=== PATIENT | female | born 1980 | race Caucasian/White ===

== ENCOUNTER 2018-01-22 13:33 | Observation (INO) | payer BC ==
[~2018-01-22] VITALS: Ht 165.1 cm; Wt 79.9 kg
[2018-01-22] MEDS ORDERED: CITA20TA9 PO (14:27)
[2018-01-22] MEDS ORDERED: LACTATED RINGERS 1,000 ML IV SCH ×2 (14:27→18:30)
[2018-01-22] MEDS ORDERED: OMEP-110 PO (14:27)
[2018-01-22 14:29] LABS: MICROSCOPIC NOT IND
[2018-01-22] MEDS ORDERED: MIDAZOLAM 1 MG/ML, 2ML ONE (14:29)
[2018-01-22] MEDS ORDERED: FENTANYL PF 250 MCG/5ML ONE (14:29)
[2018-01-22] MEDS ORDERED: OxyconTIN ER 10 MG TAB.ER PO ONE (14:30)
[2018-01-22] MEDS ORDERED: GABAPENTIN 300 MG CAPSULE PO ONE (14:30)
[2018-01-22] MEDS ORDERED: ACETAMINOPHEN 500 MG TABLET PO ONE (14:30)
[2018-01-22 14:32] LABS: CULTURE INDICATED? NO
[2018-01-22 14:35] VITALS: BP 105/68
[2018-01-22 14:41] LABS: BASOPHILS # (AUTO) 0.05 x10^3/uL (0-0.1); BASOPHILS % (AUTO) 1 % (0-1); EOSINOPHILS # (AUTO) 0.13 x10^3/uL (0-0.4); EOSINOPHILS % (AUTO) 2 % (1-7); LYMPHOCYTES # (AUTO) 2.38 x10^3/uL (1-3.4); LYMPHOCYTES % (AUTO) 29 % (22-44); MD NO; MEAN CORPUSCULAR HGB CONC 33.2 g/dL (32.4-35.8); MEAN CORPUSCULAR VOLUME 87.5 fL (80-100); MEAN PLATELET VOLUME 7.7 fL (7.4-10.4); MONOCYTES % (AUTO) 7 % (2-9); NEUTROPHILS # (AUTO) 5.21 x10^3/uL (1.8-6.8); NEUTROPHILS % (AUTO) 62 % (42-75); PLATELET COUNT 261 x10^3/uL (130-400); RED BLOOD COUNT 4.42 x10^6/uL (3.82-5.3); RED CELL DISTRIBUTION WIDTH 13.6 % (9.6-15.2)
[2018-01-22 14:52] LABS: ALANINE AMINOTRANSFERASE 21 U/L (12-78); ALBUMIN 3.6 g/dL (3.4-5.0); ANION GAP 7 mmol/L (5-15); CALCIUM 8.5 mg/dL (8.5-10.1); CHLORIDE 109 mmol/L (98-107); CREATININE 0.71 mg/dL (0.55-1.02)
[2018-01-22 14:54] LABS: ALKALINE PHOSPHATASE 80 U/L (45-117); BILIRUBIN,TOTAL 0.7 mg/dL (0.2-1.0); TOTAL PROTEIN 6.7 g/dL (6.4-8.2)
[2018-01-22] MEDS ORDERED: PLEASE ENTER HEIGHT AND WEIGHT MC SCH (15:00)
[2018-01-22] MEDS ORDERED: BUPIVACAINE/PF 0.25% ONE (15:03)
[2018-01-22] MEDS ORDERED: EPINEPHRINE 1 MG/ML, 1ML ONE (15:03)
[2018-01-22] MEDS ORDERED: SILVER NITRATE STICK TP ONE (15:03)
[2018-01-22] MEDS ORDERED: ROCURONIUM 10 MG/ML,10ML ONE (15:38)
[2018-01-22] MEDS ORDERED: DEXAMETHASONE 4 MG/ML, 1ML ONE (15:38)
[2018-01-22] MEDS ORDERED: PROPOFOL 10 MG/ML, 20ML ONE (15:38)
[2018-01-22] MEDS ORDERED: NEOSTIGMINE 1 MG/ML, 10ML ONE (15:38)
[2018-01-22] MEDS ORDERED: GLYCOPYRROLATE 0.2MG/1ML, 5ML ONE (15:38)
[2018-01-22] MEDS ORDERED: ONDANSETRON 2MG/ML, 2ML ONE (15:38)
[2018-01-22] MEDS ORDERED: SUCCINYLCHOLINE 20 MG/ML, 10ML ONE (15:38)
[2018-01-22] MEDS ORDERED: PROMETHAZINE 25 MG/ML, 1ML IV PRN (16:00)
[2018-01-22] MEDS ORDERED: ALBUTEROL SULFATE 2.5 MG/3 ML NPPB PRN (16:00)
[2018-01-22] MEDS ORDERED: METOCLOPRAMIDE 5 MG/ML, 2ML IV PRN (16:00)
[2018-01-22] MEDS ORDERED: hydrALAzine 20 MG/ML, 1ML IV PRN (16:00)
[2018-01-22] MEDS ORDERED: ONDANSETRON 2MG/ML, 2ML IVPush PRN (16:00)
[2018-01-22] MEDS ORDERED: LABETALOL 5MG/ML, 20ML IV PRN (16:00)
[2018-01-22] MEDS ORDERED: OXYcodone 5 MG/5 ML ORAL.SOL UDC PO PRN (16:00)
[2018-01-22] MEDS ORDERED: KETOROLAC 30 MG/1 ML IV PRN ×2 (16:00→22:30)
[2018-01-22] MEDS ORDERED: HYDROmorphone 1 MG/ML, 1ML IV PRN (16:00)
[2018-01-22] MEDS ORDERED: BUPIVACAINE/PF 0.25% INFIL ONE (16:08)
[2018-01-22] MEDS ORDERED: EPINEPHRINE 1 MG/ML, 1ML INFIL ONE (16:08)
[2018-01-22] MEDS ORDERED: MEPERIDINE/PF 50 MG/ML ONE (16:27)
[2018-01-22] MEDS: MEPERIDINE/PF 25MG/0.5ML IVPush PRN (16:30)
[2018-01-22] MEDS ORDERED: KETOROLAC 30 MG/1 ML ONE (16:30)
[2018-01-22] MEDS: FENTANYL PF 100 MCG/2ML IV PRN ×3 (16:40→16:50)
[2018-01-22] MEDS ORDERED: FENTANYL PF 100 MCG/2ML ONE (16:47)
[2018-01-22] MEDS ORDERED: OXYcodone 5 MG/5 ML ORAL.SOL UDC ONE (16:47)
[2018-01-22] MEDS ORDERED: ONDANSETRON 2MG/ML, 2ML IV PRN (18:00)
[2018-01-22] MEDS ORDERED: FENTANYL PF 100 MCG/2ML IV PRN (18:00)
[2018-01-22] MEDS ORDERED: HYDROcodone/APAP 7.5-325MG/15ML UDC PO PRN (18:30)
[2018-01-22 18:31] VITALS: BP 112/85
[2018-01-23] MEDS ORDERED: OMEPRAZOLE 20 MG CAPSULE.DR PO SCH (07:30)
[2018-01-23] MEDS ORDERED: CITALOPRAM 20 MG TABLET PO SCH (09:00)
== END 2018-01-22 20:10 | disposition home or self-care (01) ==
LOC: OR 13:33 → 4NOR 17:30 → OR 17:39 → 4NOR 17:40
PROVIDERS: ADMIT Obstetrics & Gynecology; ATTEND Obstetrics & Gynecology
DX: N84.0 Polyp of corpus uteri (principal); N92.0 Excessive and frequent menstruation with regular cycle
CPT/HCPCS: 36415; 58558; 80053; 81003; 84703; 85025; 86850; 86900; 88305; G0378; J0171; J0330; J1100; J1885; J2175; J2250; J2405; J2704; J2710; J3010; J3490; J7120